=== PATIENT | male | born 1985 | race Caucasian/White ===

== ENCOUNTER 2018-07-10 13:59 | Emergency (ER) | payer OTHER, MEDICAID ==
[2018-07-10] MEDS ORDERED: NS 1,000 ML IV ONE (15:07)
--- NOTE | 2018-07-10 15:07 | EDPHY ---
H & P Time Seen by Provider: 07/10/18 14:51 HPI/ROS: Chief complaint. Dizzy HPI. Patient is a 32-year-old male presents presents emergency department with complaint of a superficial thrombophlebitis that he has had on his right chest for approximately 12 years has increased in size over night. He felt slightly off balance. He has some pressure sensation in his chest. He had aortic valve in aneurysm repaired 10 years ago. He describes pain is right-sided and shooting with some pressure sensation. No radiation. He has had some sharp posterior headaches that are brief. His right hand was purplish today though now better. He has increased pain with deep breathing. He does take Coumadin. He has had slight cough for 3 weeks. No fever. Occasional intermittent diarrhea over the past 3 months. No unusual leg pain or swelling. He feels quite anxious and is not sure whether his anxiety is a cause of his symptoms are not ROS 10 systems were reviewed and negative with the exception of the elements mentioned in the history of present illness Past Medical/Surgical History: Past medical history is significant for aortic valve replacement and aortic aneurysm repair. 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 Social History: , daily smoker, no alcohol Smoking Status: Light smoker Physical Exam: General Appearance: Alert pleasant well-developed male mild distress vitals are stable Eyes: Pupils equal and round no pallor or injection. ENT, Mouth: Mucous membranes are moist. Respiratory: There are no retractions, lungs are clear to auscultation. Cardiovascular: Regular rate and rhythm with mechanical valve from his aortic valve audible; dilated superficial vein on the right chest lateral clavicular line to mid axillary line Gastrointestinal: Abdomen is soft and nontender, no masses, bowel sounds normal. Neurological: Awake and alert, sensory and motor exams grossly normal. Skin: Warm and dry, no rashes. Musculoskeletal: Neck is supple nontender. Extremities symmetrical, full range of motion. Psychiatric: Patient is oriented X 3, there is no agitation. Constitutional: Initial Vital Signs Temperature (C) 36.8 C 07/10/18 14:04 Heart Rate 97 07/10/18 14:04 Respiratory Rate 16 07/10/18 14:04 Blood Pressure 182/102 H 07/10/18 14:04 O2 Sat (%) 95 07/10/18 14:04 O2 Delivery Mode Room Air Allergies/Adverse Reactions: meperidine HCl [From Demerol] Allergy (Verified 03/04/16 11:46) Home Medications: Medication Instructions Recorded Coumadin 7.5MG (RX) 08/31/14 Enoxaparin [Lovenox 60 MG (*)] 60 mg SQ Q12H #10 syr 07/10/18 Medical Decision Making - Diagnostics EKG Interpretation: EKG interpreted by me shows normal sinus rhythm normal interval and axis. QRS is normal there is no significant ST elevation or depression. No arrhythmia. The rate is 77 Imaging Results: Imaging Impressions Chest/Thorax CTA 07/10/18 15:25 Impression: 1. No pulmonary embolism. 2. Clear lungs. 3. Dilated right anterior chest wall veins not significantly changed from a radiographic standpoint. No surrounding inflammation to suggest phlebitis or acute thrombus. 4. Post coarctation repair findings at the proximal descending thoracic aorta noted. Findings and recommendations discussed with Dr. Enrrique Albarado at 5:00 PM, 07/10. Final report concurs with initial preliminary interpretation. Procedures: IV normal saline, monitor ED Course/Re-evaluation: Re-evaluation 5:00 p.m. Patient feeling much better. He and I discussed imaging and lab results. We discussed treatment plan including that his INR subtherapeutic. He will receive Lovenox today and a series. We have discussed increasing Coumadin and having his INR rechecked in 2 days. He expresses understanding and agreement Differential Diagnosis: I considered pulmonary embolus, aortic dissection, acute coronary syndrome. Patient is subtherapeutic on his INR with mechanical aortic valve - Data Points Laboratory Results: Laboratory Results 07/10/18 15:07 07/10/18 15:07 07/10/18 07/10/18 07/10/18 15:30 15:07 15:07 WBC RBC Hgb Hct MCV MCH MCHC RDW Plt Count MPV Neut % (Auto) Lymph % (Auto) [place] % (Auto) Eos % (Auto) Baso % (Auto) Nucleat RBC Rel Count Absolute Neuts (auto) Absolute Lymphs (auto) Absolute Monos (auto) Absolute Eos (auto) Absolute Basos (auto) Absolute Nucleated RBC Immature Gran % Immature Gran # PT INR APTT D-Dimer < 0.27 ug/mLFEU ug/mLFEU (0.00-0.50) Sodium Potassium Chloride Carbon Dioxide Anion Gap BUN Creatinine Estimated GFR Glucose Calcium Total Bilirubin 0.7 mg/dL mg/dL (0.1-1.4) Conjugated Bilirubin 0.4 mg/dL mg/dL (0.0-0.5) Unconjugated Bilirubin 0.3 mg/dL mg/dL (0.0-1.1) AST 28 IU/L IU/L (17-59) ALT 33 IU/L IU/L (21-72) Alkaline Phosphatase 47 IU/L IU/L (38-126) POC Troponin I 0.00 ng/mL ng/mL (0.00-0.08) Total Protein 7.0 g/dL g/dL (6.3-8.2) Albumin 4.4 g/dL g/dL (3.5-5.0) Lipase 141 IU/L IU/L (23-300) 07/10/18 07/10/18 07/10/18 15:07 15:07 15:07 WBC 6.84 10^3/uL 10^3/uL (3.80-9.50) RBC 4.95 10^6/uL 10^6/uL (4.40-6.38) Hgb 15.6 g/dL g/dL (13.7-17.5) Hct 43.0 % % (40.0-51.0) MCV 86.9 fL fL (81.5-99.8) MCH 31.5 pg pg (27.9-34.1) MCHC 36.3 g/dL g/dL (32.4-36.7) RDW 12.9 % % (11.5-15.2) Plt Count 185 10^3/uL 10^3/uL (150-400) MPV 8.9 fL fL (8.7-11.7) Neut % (Auto) 64.9 % % (39.3-74.2) Lymph % (Auto) 24.6 % % (15.0-45.0) [place] % (Auto) 9.2 % % (4.5-13.0) Eos % (Auto) 0.7 % % (0.6-7.6) Baso % (Auto) 0.3 % % (0.3-1.7) Nucleat RBC Rel Count 0.0 % % (0.0-0.2) Absolute Neuts (auto) 4.44 10^3/uL 10^3/uL (1.70-6.50) Absolute Lymphs (auto) 1.68 10^3/uL 10^3/uL (1.00-3.00) Absolute Monos (auto) 0.63 10^3/uL 10^3/uL (0.30-0.80) Absolute Eos (auto) 0.05 10^3/uL 10^3/uL (0.03-0.40) Absolute Basos (auto) 0.02 10^3/uL 10^3/uL (0.02-0.10) Absolute Nucleated RBC 0.00 10^3/uL 10^3/uL (0-0.01) Immature Gran % 0.3 % % (0.0-1.1) Immature Gran # 0.02 10^3/uL 10^3/uL (0.00-0.10) PT 17.6 SEC H SEC (12.0-15.0) INR 1.43 H (0.83-1.16) APTT 32.0 SEC SEC (23.0-38.0) D-Dimer Sodium 138 mEq/L mEq/L (135-145) Potassium 3.9 mEq/L mEq/L (3.3-5.0) Chloride 106 mEq/L mEq/L (97-110) Carbon Dioxide 25 mEq/l mEq/l (22-31) Anion Gap 7 mEq/L mEq/L (6-14) BUN 11 mg/dL mg/dL (7-23) Creatinine 0.7 mg/dL mg/dL (0.7-1.3) Estimated GFR > 60 Glucose 88 mg/dL mg/dL (70-100) Calcium 9.3 mg/dL mg/dL (8.5-10.4) Total Bilirubin Conjugated Bilirubin Unconjugated Bilirubin AST ALT Alkaline Phosphatase POC Troponin I Total Protein Albumin Lipase Medications Given: Discontinued Medications Sodium Chloride (Ns) 1,000 mls @ 0 mls/hr IV EDNOW ONE; Wide Open PRN Reason: Protocol Stop: 07/10/18 15:08 Last Admin: 07/10/18 15:53 Dose: 1,000 mls Lorazepam (Ativan Injection) 1 mg IVP EDNOW ONE Stop: 07/10/18 15:28 Last Admin: 07/10/18 15:54 Dose: 1 mg Point of Care Test Results: Chemistry 07/10/18 15:30 POC Troponin I 0.00 ng/mL ng/mL (0.00-0.08) Departure - Departure Disposition: Home, Routine, Self-Care Clinical Impression: Chest pain Qualifiers: Chest pain type: unspecified Qualified Code(s): R07.9 - Chest pain, unspecified Condition: Good Instructions: Chest Pain (ED) Additional Instructions: Make sure you take your Coumadin as directed Take an extra half Coumadin tablet with your regular dose tonight and tomorrow night Lovenox injections until your INR is therapeutic at 2.5 Return for worsening chest discomfort or trouble breathing Had your INR rechecked in 2 days. Referrals: NONE *PRIMARY CARE P,. [Primary Care Provider] - As per Instructions Annie Vences MD [Medical Doctor] - As per Instructions [facility] [Outside] - As per Instructions Prescriptions: Enoxaparin [Lovenox 60 MG (*)] 60 mg SQ Q12H #10 syr
[2018-07-10 15:22] LABS: PLATELET COUNT 185 10^3/uL (150-400)
[2018-07-10] MEDS ORDERED: LORazepam 2 MG/ML INJ IVP ONE (15:27)
[2018-07-10 15:31] LABS: INR 1.43 (0.83-1.16); PROTIME(PATIENT) 17.6 SEC (12.0-15.0)
[2018-07-10] MEDS ORDERED: IOPAMIDOL (ISOVUE 370) 100 ML BTL IV ONE (15:53)
--- NOTE | 2018-07-10 16:27 | CPEKG ---
Test Reason : OPEN Blood Pressure : / mmHG Vent. Rate : 077 BPM Atrial Rate : 078 BPM P-R Int : 158 ms QRS Dur : 087 ms QT Int : 341 ms P-R-T Axes : 054 041 062 degrees QTc Int : 386 ms Sinus rhythm Probable left atrial enlargement Anteroseptal infarct, old Confirmed by Enrrique Albarado ([id number]) on 07/10/2018 4:26:59 PM Referred By: Confirmed By:Enrrique Albarado
[2018-07-10] MEDS ORDERED: ENOXAPARIN 60 MG/0.6 ML SYR SC ONE (17:02)
[2018-07-10 17:31] VITALS: BP 139/79
== END 2018-07-10 18:17 | disposition home or self-care (01) ==
DX: R07.9 Chest pain, unspecified (principal); E86.9 Volume depletion, unspecified; Z95.2 Presence of prosthetic heart valve; Z79.01 Long term (current) use of anticoagulants
CPT/HCPCS: 84484-PO; 96374; J1650; J2060; Q9967